=== PATIENT | female | born 1985 | race Caucasian/White ===

== ENCOUNTER 2022-02-10 11:56 | Emergency (ER) | payer MEDICAID, OTHER ==
[~2022-02-10] VITALS: Ht 162.6 cm; Wt 81.8 kg
[2022-02-10 12:00] VITALS: BP 130/85
[2022-02-10] MEDS ORDERED: ibuprofen tablet 400 MG TABLET PO ONE (12:30)
[2022-02-10] MEDS ORDERED: ondansetron 4mg rapidly disintigrating tab PO ONE (12:30)
[2022-02-10] MEDS ORDERED: ACET-1017 PO (12:33)
[2022-02-10] MEDS ORDERED: IBUP-860 PO (12:33)
[2022-02-10] MEDS ORDERED: ONDA4TAB12 PO (12:33)
== END 2022-02-10 12:30 | disposition home or self-care (01) ==
LOC: ER 11:57
DX: U07.1 COVID-19 (principal); Z88.8 Allergy status to other drugs, medicaments and biological substances; Z79.1 Long term (current) use of non-steroidal anti-inflammatories (NSAID); Z79.899 Other long term (current) drug therapy
CPT/HCPCS: 99283